=== PATIENT | male | born 1995 | race Caucasian/White ===

== ENCOUNTER 2017-02-14 12:33 | Emergency (ER) | payer SELFPAY ==
[~2017-02-14] VITALS: Ht 185.4 cm; Wt 75.0 kg
[~2017-02-14 12:33] MED LIST: BACT2OIN TOP; BACT800T5 PO; CLIN1CAP5 PO; IBUP800T23 PO
[2017-02-14 12:34] VITALS: BP 136/80; PULSE 78; RESP 20; TEMP 97.4; O2SAT 98
--- NOTE | 2017-02-14 12:49 | PD ---
HPI . ear fullness and can't hear for several weeks Chief Complaint: ENT Complaint Time Seen by Provider: 12:49 Travel History International Travel<30 days: No Contact w/Intl Traveler<30days: No Traveled to known affect area: No History of Present Illness HPI 21 yr old male with hx of cerumen impaction here with c/o ear fullness for several weeks. He says that he has had ear wax block his ears before and had to have them flushed. He admits to q tip usage. He admits to decreased hearing. He denies any other issues. He is accompanied by his sister. PFSH Past Medical History Hx Anticoagulant Therapy: No Asthma: No Blood Disorders: No Bipolar Disorder: Yes Anxiety: No Depression: Yes Heart Rhythm Problems: No Cancer: No Cardiovascular Problems: No High Cholesterol: No Chemotherapy: No Chest Pain: No Congestive Heart Failure: No COPD: No Cerebrovascular Accident: No Diabetes: No Diminished Hearing: No Endocrine: No Genitourinary: No Immune Disorder: No Implanted Vascular Access Dvce: Yes Musculoskeletal: No Psychiatric: No Respiratory: No Radiation Therapy: No Sleep Apnea: No Thyroid Disease: No Social History Alcohol Use: Yes ("a lot" ) Tobacco Use: Yes (09/29 PPD) Substance Use: Yes (K2, ADDERALL, METH, DILAUDID) Allergies-Medications (Allergen,Severity, Reaction): Coded Allergies: Toradol (Verified Allergy, Intermediate, VOMITING, 04/24/16) *MDRO Multi-Drug Resistant Organism (Verified Adverse Reaction, Unknown, ) 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 Reported Meds & Prescriptions Reported Meds & Active Scripts Active Clindamycin Hcl (Clindamycin HCl) 150 Mg Cap 450 Mg PO TID 10 Days Bactroban 2% Oint (22 gm) (Mupirocin) 22 Gm Oint 2 % TOP BID 10 Days APPLY TO AFFECTED AREAS Ibuprofen 800 Mg Tab 800 Mg PO TID Bactrim DS (Sulfamethoxazole-Trimethoprim DS) 1 Tab Tab 2 Tab PO BID 10 Days Review of Systems General / Constitutional: No: Fever Eyes: No: Visual changes HENT: Positive: Other (ear fullness/decreased hearing ), No: Headaches Cardiovascular: No: Chest Pain or Discomfort Respiratory: No: Shortness of Breath Gastrointestinal: No: Abdominal Pain Genitourinary: No: Dysuria Musculoskeletal: No: Pain Skin: No Rash Neurologic: No: Weakness Psychiatric: No: Depression Endocrine: No: Polydipsia Hematologic/Lymphatic: No: Easy Bruising Physical Exam Narrative GENERAL: AAO x 3, no acute distress, Well-nourished, well-developed patient. SKIN: Warm and dry. No visible rashes or bruising. HEAD: Normocephalic and atraumatic. EYES: No scleral icterus. No injection or drainage. ENT: No nasal drainage noted. Mucous membranes pink. Airway patent. Bilateral cerumen impaction NECK: Supple, trachea midline. No JVD. No lymphadenopathy CARDIOVASCULAR: Regular rate and rhythm without murmurs, gallops, or rubs. RESPIRATORY: Breath sounds equal bilaterally. No accessory muscle use. No rhonchi or rales. GASTROINTESTINAL: Visual inspection normal EXTREMITIES: No cyanosis or edema. BACK: Nontender without obvious deformity. No CVA tenderness. PSYCH: AAO x 3, normal affect. Data Data Last Documented VS Vital Signs Date Time Temp Pulse Resp B/P Pulse Ox O2 Delivery O2 Flow Rate FiO2 02/14/17 12:34 97.4 78 20 136/80 98 Room Air Orders Carbamide Peroxide 6.5% Otic (Debrox 6.5 (02/14/17 13:00) Ear Irrigation (02/14/17 12:53) MDM Medical Decision Making Medical Screen Exam Complete: Yes Emergency Medical Condition: Yes Medical Record Reviewed: Yes Differential Diagnosis Cerumen impaction, less likely sensorineural hearing loss, otitis media Narrative Course This is a 21-year-old male presenting with bilateral ear fullness. On examination he has bilateral cerumen impaction. This is very hard wax and may require outpatient treatment with Debrox initially prior to attempted removal. Removal attempted: used debrox and allowed to sit for 10 minutes prior to removal; some cerumen removed, remaining cerumen too impacted to flush or remove. Will likely rupture TM with consistency of wax. advised debrox outpatient and f/u with PCP. Explained to patient that he may need to see ENT. patient yelling at me and the nurse telling us he wants us to flush harder. I explained to him that we are not going to rupture his TM. He keeps yelling and I advised him that we have both attempted to remove as much cerumen as possible. He is asking me to spend more time flushing. In combination, my nurse and I have flushed too many times to count and have spent a considerable amount of time flushing his ears. He tells me that I do not care about my patient and I didn't speak to him in a soft manner. There is nothing but clear water coming out. The cerumen is too impacted and needs to be softened. The catheter tip is bending from the hardened wax. Patient does not seem to understand. I showed his sister what we were dealing with by letting her look into the otoscope. His sister is telling him to calm down and listen. She was very understanding. He cursed and walked out of the exam room. Diagnosis Primary Impression: Impacted cerumen of both ears Patient Instructions: Cerumen Impaction (ED), General Instructions Additional Instructions: Try using [id number] Debrox to clean your ears. It can be purchased from any pharmacy. It is sold over the counter. Do not use Q-tips. Med/Other Pt SpecificInfo: No Change to Meds Disposition: 01 DISCHARGE HOME Condition: Stable Rebekah Conner February 14, 2017 12:49
[2017-02-14] MEDS ORDERED: CARBAMIDE PEROXIDE 6.5% OTIC SOLN 15 ML BTL EACH EAR ONE (13:00)
== END 2017-02-14 13:30 | disposition home or self-care (01) ==
LOC: NEPK 12:33
DX: H61.23 Impacted cerumen, bilateral (principal); F17.210 Nicotine dependence, cigarettes, uncomplicated
CPT/HCPCS: 99282